=== PATIENT | female | born 1970 | race African-American/Black ===

== ENCOUNTER 2021-02-05 03:42 | Emergency (ER) | payer MEDICAID ==
[~2021-02-05] VITALS: Ht 167.6 cm; Wt 100.0 kg
[2021-02-05] MEDS ORDERED: ONDANSETRON HCL 4MG/2ML INJ IV STA (04:03)
[2021-02-05] MEDS ORDERED: SODIUM CHLORIDE 0.9% 1,000 ML IV ONE (04:15)
[2021-02-05] MEDS ORDERED: DEXT 5%/0.9% NACL 1,000 ML IV ONE (04:15)
[2021-02-05 04:38] LABS: HEMATOCRIT. 43.1 % (36.0-48.0); HEMOGLOBIN. 14.3 g/dL (12.0-16.0); MEAN CORPUSCULAR HEMOGLOBIN 29.5 pg (28.0-32.0); MEAN CORPUSCULAR VOLUME 88.7 fL (81.0-99.0); MEAN PLATELET VOLUME 9.2 fl (7.4-10.4); PLATELET 361 x1000/uL (130-400); RED BLOOD CELL COUNT 4.86 mill/uL (4.2-5.4); RED CELL DISTRIBUTION WIDTH 14.1 % (11.6-14.6)
[2021-02-05 04:42] LABS: CHLORIDE 108 mEq/L (98-107)
[2021-02-05 04:46] LABS: HCG SCREEN NEGATIVE; PROTHROMBIN TIME 10.8 sec (9.6-11.0)
[2021-02-05 05:06] LABS: PLATELET ESTIMATE NORMAL
[2021-02-05 05:27] LABS: CLARITY URINE CLOUDY (CLEAR); COLOR URINE YELLOW (YELLOW); KETONES URINE NEGATIVE (NEGATIVE); LEUKOCYTE ESTERASE URINE TRACE (NEGATIVE); NITRITE URINE NEGATIVE (NEGATIVE); OCCULT BLOOD URINE 1+ (NEGATIVE); PROTEIN URINE 1+ (NEGATIVE); SPECIFIC GRAVITY URINE 1.023 (1.005-1.030)
[2021-02-05] MEDS ORDERED: ONDA4TAB5 MT (05:32)
[2021-02-05] MEDS ORDERED: IOHEXOL-300 100 ML BOTTLE ONE (10:34)
[2021-02-05] MEDS ORDERED: OMEP20CA14 MT (11:42)
[2021-02-05] MEDS ORDERED: CIPR-263 MT (11:42)
[2021-02-05 11:43] VITALS: BP 150/86
== END 2021-02-05 11:55 | disposition home or self-care (01) ==
LOC: ER 03:42
DX: R10.9 Unspecified abdominal pain (principal); R11.2 Nausea with vomiting, unspecified; R19.7 Diarrhea, unspecified; E86.0 Dehydration
CPT/HCPCS: 36415; 74177; 76700; 80053; 81003; 83605; 83690; 84484; 84703; 85025; 85610; 93005; 96361; 96374; 99285; J2405; J7030; J7042; Q9967